=== PATIENT | female | born 1955 | race Two or more races ===

== ENCOUNTER → 2018-01-08 | Outpatient (CLI) | DX: R10.9 Unspecified abdominal pain (principal) ==

== ENCOUNTER 2018-01-27 01:50 | Emergency (ER) | payer OTHER ==
[~2018-01-27 01:50] MED LIST: ASPI81TA82 PO; ATOR10TA PO; DICL50TA3 PO; FISH100020 PO; GLUCTAB PO; HYDR-2768 PO; SM F10002 PO; VITA100O PO; VITATAB11
[2018-01-27 01:53] VITALS: BP 164/87; PULSE 79; RESP 18; TEMP 97.2; O2SAT 97
--- NOTE | 2018-01-27 02:36 | PD ---
HPI Chief Complaint: Abdominal Pain Time Seen by Provider: 02:07 Travel History International Travel<30 days: No Contact w/Intl Traveler<30days: No Traveled to known affect area: No History of Present Illness HPI The patient is a 62 year old female who presents to the [facility] emergency department with a history of abdominal pain that she reports has been present since November. The patient reports that she has seen her primary care physician, Dr. Scott regarding this as well as her civil transportation engineer, Dr. Aguayo for evaluation of this. She reports that she has not been able to follow-up to have laboratory studies done, however she has had some imaging done. The patient had a CT scan of the abdomen and pelvis done at the beginning of December that showed some constipation and thickening of the stomach area. The patient reports that she last had endoscopy and colonoscopy done approximately 1 year ago. The patient reports that she has been experiencing chronic constipation that is gradually gotten worse in the last month. She reports that 2 weeks ago she stopped taking pain medication because of the constipation. The patient reports that this has not helped. She last moved her bowels on Friday, 2 days ago. She reports that it was a small and hard stool. She reports that she has been taking multiple stool softeners without relief. She reports having nausea, however no vomiting. She denies having any fevers. He reports that prior to arrival she felt an explosive pain in the right side of the abdomen and became increasingly distended, though she decided to come the emergency department for evaluation and treatment. She denies having any known recent fevers, cough or congestion, neck pain, chest pain, shortness of breath, or neurologic symptoms. The patient also has a copy of an ultrasound of the right upper quadrant that was done recently in mid December that showed no abnormality of her gallbladder. The patient also had a pelvis ultrasound that showed no acute abnormality. [facility] Past Medical History Narrative Medical The patient's past medical history is significant for diabetes mellitus, constipation, chronic back pain, hypertension Past Surgical History Narrative Surgical The patient's past surgical history is reportedly none. Social History Alcohol Use: No Tobacco Use: No Substance Use: No Allergies-Medications (Allergen,Severity, Reaction): Coded Allergies: No Known Allergies (Unverified Allergy, Unknown, 01/27/18) Reported Meds & Prescriptions Reported Meds & Active Scripts Active Miralax Powder (Polyethylene Glycol 3350 Powder) 17 Gm Powd 17 Gm PO DAILY Mix and dissolve one measuring cap-ful (17 grams) in water or juice. Reported Vitamin B Complex (B-Complex Vitamins) Tab Vitamin E 100 Unit Oil 400 Units PO DAILY Fish Oil ([place]-3 Fatty Acids) 1,000 Mg Cap 1,000 Mg PO BID Sm Flax Seed Oil (Flaxseed) 1,000 Mg Cap 1,200 Mg PO Aspir-81 (Aspirin) 81 Mg Tab 81 Mg PO DAILY Atorvastatin 10 mg (Atorvastatin Calcium) 10 Mg Tab 10 Mg PO DAILY Diclofenac Sodium Dr (Diclofenac Sodium) 50 Mg Tab 100 Mg PO DAILY Hctz (Hydrochlorothiazide) 25 Mg Tab 25 Mg PO DAILY Glucophage XR 24 HR (Metformin HCl) 500 Mg Tab 1,000 Mg PO BIDPC Review of Systems Except as stated in HPI: all other systems reviewed are Neg General / Constitutional: No: Fever Eyes: No: Visual changes HENT: No: Headaches Cardiovascular: No: Chest Pain or Discomfort Respiratory: No: Shortness of Breath Gastrointestinal: Positive: Nausea, Abdominal Pain, Constipation, Changes in Bowel Habits, Indigestion, No: Vomiting, Diarrhea, Hematochezia, Loss of Appetite Genitourinary: No: Dysuria Musculoskeletal: No: Pain Skin: No Rash Neurologic: No: Weakness Psychiatric: No: Depression Endocrine: No: Polydipsia Hematologic/Lymphatic: No: Easy Bruising Physical Exam Narrative General: The patient is a well-developed well-nourished female in no acute distress. Head and Neck exam: Head is normocephalic atraumatic. Eyes: EOMI, pupils are equal round and reactive to light. Nose: Midline septum with pink mucous membranes Mouth: Dentition unremarkable. Moist mucus membranes. Posterior oropharynx is not erythematous. No tonsillar hypertrophy. Uvula midline. Airway patent. Neck: No palpable lymphadenopathy. No nuchal rigidity. No thyromegaly. Cardiovascular: Regular rate and rhythm without murmurs, gallops, or rubs. No pulse deficit to the extremities on simultaneous auscultation and palpation of her radial artery. Lungs: Clear to auscultation bilaterally. No wheezes, rhonchi, or rales. Abdomen: Soft, with reported tenderness on palpation of the right upper quadrant of the abdomen and midepigastric area, no other tenderness on palpation of the other quadrants of the abdomen. The patient is mildly distended on exam. The patient has normal bowel sounds audible. No guarding, rebound, or rigidity. Negative Centeno sign. No tenderness on palpation of McBurney's point. Extremities: No clubbing, cyanosis, or edema. 2+ pulses in all 4 extremities. Back: No costovertebral angle tenderness to palpation. Neurologic Exam: Grossly nonfocal. Skin Exam: No rash noted. Intact skin that is warm and dry. Data Data Last Documented VS Vital Signs Date Time Temp Pulse Resp B/P (MAP) Pulse Ox O2 Delivery O2 Flow Rate FiO2 01/27/18 01:53 97.2 79 18 164/87 (112) 97 Orders Orders Electrocardiogram (01/27/18 02:27) Complete Blood Count With Diff (01/27/18 02:27) Comprehensive Metabolic Panel (01/27/18 02:27) Creatine Kinase (Cpk) (01/27/18 02:27) Ckmb (Isoenzyme) Profile (01/27/18 02:27) Troponin I (01/27/18 02:27) Prothrombin Time / Inr (Pt) (01/27/18 02:27) Act Partial Throm Time (Ptt) (01/27/18 02:27) Lipase (01/27/18 02:27) Urinalysis - C+S If Indicated (01/27/18 02:27) Magnesium (Mg) (01/27/18 02:27) Chest, Single Ap (01/27/18 02:27) Ct Abd/Pel W Iv Contrast(Rout) (01/27/18 02:27) Iv Access Insert/Monitor (01/27/18 02:27) Ecg Monitoring (01/27/18 02:27) Oximetry (01/27/18 02:27) CKMB (01/27/18 02:45) CKMB% (01/27/18 02:45) Iohexol 350 Inj (Omnipaque 350 Inj) (01/27/18 04:17) Sodium Chlor 0.9% 1000 Ml Inj (Ns 1000 M (01/27/18 04:30) Ketorolac Inj (Toradol Inj) (01/27/18 04:30) Fleets Enema PRN (01/27/18 05:01) Labs Laboratory Tests Test 6/5/18 02:45 White Blood Count 7.7 TH/MM3 Red Blood Count 3.85 MIL/MM3 Hemoglobin 12.5 GM/DL Hematocrit 36.1 % Mean Corpuscular Volume 93.7 FL Mean Corpuscular Hemoglobin 32.6 PG Mean Corpuscular Hemoglobin Concent 34.8 % Red Cell Distribution Width 14.0 % Platelet Count 271 TH/MM3 Mean Platelet Volume 7.6 FL Neutrophils (%) (Auto) 50.4 % Lymphocytes (%) (Auto) 41.7 % Monocytes (%) (Auto) 6.3 % Eosinophils (%) (Auto) 0.8 % Basophils (%) (Auto) 0.8 % Neutrophils # (Auto) 3.9 TH/MM3 Lymphocytes # (Auto) 3.2 TH/MM3 Monocytes # (Auto) 0.5 TH/MM3 Eosinophils # (Auto) 0.1 TH/MM3 Basophils # (Auto) 0.1 TH/MM3 CBC Comment DIFF FINAL Differential Comment Prothrombin Time 10.0 SEC Prothromb Time International Ratio 1.0 RATIO Activated Partial Thromboplast Time 27.1 SEC Blood Urea Nitrogen 17 MG/DL Creatinine 1.01 MG/DL Random Glucose 97 MG/DL Total Protein 7.2 GM/DL Albumin 3.9 GM/DL Calcium Level 8.8 MG/DL Magnesium Level 2.3 MG/DL Alkaline Phosphatase 71 U/L Aspartate Amino Transf (AST/SGOT) 19 U/L Alanine Aminotransferase (ALT/SGPT) 45 U/L Total Bilirubin 0.3 MG/DL Sodium Level 136 MEQ/L Potassium Level 3.6 MEQ/L Chloride Level 100 MEQ/L Carbon Dioxide Level 25.2 MEQ/L Anion Gap 11 MEQ/L Estimat Glomerular Filtration Rate 56 ML/MIN Total Creatine Kinase 215 U/L Creatine Kinase MB 3.6 NG/ML Creatine Kinase MB % 1.7 % Troponin I LESS THAN 0.02 NG/ML Lipase 91 U/L MDM Medical Decision Making Medical Screen Exam Complete: Yes Emergency Medical Condition: Yes Medical Record Reviewed: Yes Differential Diagnosis Perforated bowel, versus peptic ulcer disease, versus pancreatitis, versus diverticulitis, versus fecal impaction, versus colitis Narrative Course During the course of the patient's emergency department visit, the patient's history, examination, and differential diagnosis were reviewed with the patient. The patient was placed on a court monitor with oximetry and frequent blood pressure monitoring. The patient had IV access obtained and blood work sent for analysis. The patient had an EKG done on arrival. The patient's EKG shows a sinus rhythm heart rate of 62, QRS duration is 110 ms, QTC 450 ms. The patient has a right bundle branch block noted. Left anterior fascicular block noted. No acute ST segment elevation. T waves are inverted in V1, V2, aVL. The patient was initially provided ns 1 L IVF bolus, Toradol 15 mg IV 1 for pain The patient's laboratory studies were reviewed and remarkable for a white count of 7.7, hemoglobin 12.5, platelets 271 with a normal differential, CMP is remarkable for creatinine 1.01, CPK 215 with an MB percent of 1.7, troponin I less than 0.02, lipase 91, PT PTT within normal limit Radiology studies were reviewed and remarkable for a chest x-ray that shows no acute intrathoracic abnormality. CT scan of the abdomen and pelvis showed evidence of constipation with stool that is moderate in amount throughout the entire colon, no other acute abnormality. Due to the chronic nature of the patient's symptoms, the patient is encouraged to follow back up with her civil transportation engineer as previously planned. Given the patient's persistent constipation, the patient will be treated with MiraLAX, and also given a fleets enema to take home and administer in the comfort her for home where she can use her own toilet to help with constipation. The patient is resting comfortably and feels better, is alert and in no distress. The patient's results and examination findings were discussed with the patient. The repeat examination is unremarkable and benign. The history, exam, diagnostic testing, and current condition do not suggest any significant pathology to warrant further testing, continued ED treatment, admission, or surgical evaluation at this point. The vital signs have been stable. The patient does not have uncontrollable pain, intractable vomiting, or other significant symptoms. The patient's condition is stable and appropriate for discharge. The patient will pursue further outpatient evaluation with a primary care physician or other designated or consulting physician as indicated in the discharge instructions. The patient is instructed to report back to the emergency department immediately for reexamination in the mean time if she develops any new or worsening signs or symptoms. The patient expressed understanding and was agreeable with this plan. Diagnosis Primary Impression: Abdominal pain Qualified Codes: R10.11 - Right upper quadrant pain Additional Impression: Constipation Qualified Codes: K59.00 - Constipation, unspecified Referrals: [facility] Primary Care Physician Patient Instructions: Abdominal Pain (ED), Constipation (ED), General Instructions Scripts Polyethylene Glycol 3350 Powder (Miralax Powder) 17 Gm Powd 17 GM PO DAILY for Constipation, #1 CAN 0 Refills Mix and dissolve one measuring cap-ful (17 grams) in water or juice. Prov: Kenzie Diehl MD 01/27/18 Disposition: 01 DISCHARGE HOME Condition: Stable Kenzie Diehl MD Jan 27, 2018 02:36
[2018-01-27 02:51] LABS: AUTOMATED NEUTROPHIL # 3.9 TH/MM3 (1.8-7.7); BASOPHIL # 0.1 TH/MM3 (0-0.2); BASOPHIL % 0.8 % (0.0-2.0); EOSINOPHIL # 0.1 TH/MM3 (0-0.4); EOSINOPHIL % 0.8 % (0.0-4.0); HEMATOCRIT 36.1 % (35.0-46.0); HEMOGLOBIN 12.5 GM/DL (11.6-15.3); LYMPH % 41.7 % (9.0-44.0); LYMPHOCYTE # 3.2 TH/MM3 (1.0-4.8); MEAN CELL VOLUME 93.7 FL (80.0-100.0); MEAN CORPUSCULAR HEMOGLOBIN 32.6 PG (27.0-34.0); MEAN CORPUSCULAR HGB CONC 34.8 % (32.0-36.0); MEAN PLATELET VOLUME 7.6 FL (7.0-11.0); MONO % 6.3 % (0.0-8.0); MONOCYTE # 0.5 TH/MM3 (0-0.9); NEUT % 50.4 % (16.0-70.0); PLATELET COUNT 271 TH/MM3 (150-450); RED BLOOD COUNT 3.85 MIL/MM3 (4.00-5.30); WHITE BLOOD COUNT 7.7 TH/MM3 (4.0-11.0)
[2018-01-27 03:06] LABS: ALBUMIN 3.9 GM/DL (3.4-5.0); ALT (GPT) 45 U/L (10-53); AST (GOT) 19 U/L (15-37); BICARBONATE 25.2 MEQ/L (21.0-32.0); BLOOD UREA NITROGEN 17 MG/DL (7-18); CALCIUM 8.8 MG/DL (8.5-10.1); CHLORIDE 100 MEQ/L (98-107); CREATININE 1.01 MG/DL (0.50-1.00); GLOMERULAR FILTRATION RATE 56 ML/MIN (>89); GLUCOSE,RANDOM 97 MG/DL (74-106); MAGNESIUM 2.3 MG/DL (1.5-2.5); SODIUM (NA) 136 MEQ/L (136-145)
[2018-01-27 03:08] LABS: ALKALINE PHOSPHATASE 71 U/L (45-117); TOTAL BILIRUBIN ADULT 0.3 MG/DL (0.2-1.0); TOTAL PROTEIN 7.2 GM/DL (6.4-8.2); TROPONIN I LESS THAN 0.02 NG/ML (0.02-0.05)
--- NOTE | 2018-01-27 03:14 | RADRPT ---
EXAM DATE: 01/27/2018 3:08 AM EDT AGE/SEX: 62 years / Female INDICATIONS: Chest pain to inferior chest. CLINICAL DATA: This is the patient's initial encounter. Patient reports that signs and symptoms have been present for 1 day and indicates a pain score of 7/10. MEDICAL/SURGICAL HISTORY: None. None. COMPARISON: No prior [place] exams available for comparison. FINDINGS: A single AP view of the chest demonstrates the lungs to be symmetrically aerated without evidence of mass, infiltrate or effusion. The cardiomediastinal contours are unremarkable. Osseous structures a re intact. CONCLUSION: No acute intrathoracic disease. Electronically signed by: Wellington Jernigan MD 01/27/2018 3:13 AM EDT
[2018-01-27] MEDS ORDERED: IOHEXOL 350 MG/ML 10 ML VIAL (for RAD DIAG) IVCONTRAST ONE (04:17)
[2018-01-27] MEDS ORDERED: SODIUM CHLOR 0.9% 1000 ML INJ 1,000 ML IV ONE (04:30)
[2018-01-27] MEDS ORDERED: KETOROLAC TROMETHAMINE 30 MG/ML (IVP) VIAL IV PUSH ONE (04:30)
--- NOTE | 2018-01-27 04:42 | RADRPT ---
EXAM DATE: 01/27/2018 4:28 AM EDT AGE/SEX: 62 years / Female INDICATIONS: Abdomen pain for two months. CLINICAL DATA: This is the patient's initial encounter. Patient reports that signs and symptoms have been present for 2 months and indicates a pain score of 10/10. MEDICAL/SURGICAL HISTORY: Hypertension. None. ORAL CONTRAST: No oral contrast ingested. RADIATION DOSE: 7.04 CTDI (mGy) COMPARISON: No prior [place] exams available for comparison. TECHNIQUE: Multiple contiguous axial images were obtained through the abdomen and pelvis following b olus infusion of 100 ml Omnipaque 350 (iohexol) nonionic water-soluble contrast as a single exam do se. No oral contrast ingested. Using automated exposure control and adjustment of the mA and/or kV a ccording to patient size, the radiation dose was kept as low as reasonably achievable to obtain optim al diagnostic quality images. FINDINGS: Lower Lungs: The visualized lower lungs are clear. Liver: The liver has a homogeneous density without space-occupying lesion. There is no dilation of th e biliary tree. The gallbladder is unremarkable. Spleen: Homogeneous density without enlargement. Pancreas: Unremarkable without mass or calcification. Kidneys: Normal in size and shape. No evidence of mass or hydronephrosis. Adrenal Glands: Unremarkable. Aorta: The aorta and proximal iliac vessels are grossly unremarkable without aneurysmal dilation. Bowel/Mesentery: The bowel loops are grossly unremarkable. The cecum and sigmoid colon have a normal configuration. The appendix is unremarkable. No inflammatory changes. There is a moderate amount of stool throughout the entire colon. Abdominal Wall: Intact. Retroperitoneum: No evidence of adenopathy in the retrocrural, para-aortic, or deep pelvic regions. Bladder: Contours are smooth. Reproductive Organs: No abnormal masses or calcifications seen. Inguinal: The inguinal region is unremarkable without evidence of adenopathy. Bony Structures: Mild degenerative changes. CONCLUSION: 1. Unremarkable examination. Electronically signed by: Wellington Jernigan MD 01/27/2018 4:41 AM EDT
[2018-01-27] MEDS ORDERED: MIRA3350 PO (05:00)
[2018-01-27] MEDS ORDERED: SOD PHOSPHATE/SOD BIPHOSPHATE (ADULT) ENEMA 133ML RECTAL ONE (06:30)
--- NOTE | 2018-01-27 15:22 | EKG ---
Date Performed: 01/27/2018 Time Performed: 04:07:13 PTAGE: 62 years EKG: Sinus rhythm PATTERN CONSISTENT WITH PULMONARY DISEASE RIGHT BUNDLE BRANCH BLOCK LEFT ANTERIOR FASCICULAR BLOCK A BNORMAL ECG NO PREVIOUS TRACING DOCTOR: Taty Dinh Interpretating Date/Time 01/27/2018 15:21:07
== END 2018-01-27 06:46 | disposition home or self-care (01) ==
LOC: NEPC 01:50
DX: K59.09 Other constipation (principal); R94.31 Abnormal electrocardiogram [ECG] [EKG]; E11.9 Type 2 diabetes mellitus without complications; I10 Essential (primary) hypertension; G89.29 Other chronic pain; M54.9 Dorsalgia, unspecified
CPT/HCPCS: 71045; 74177; 80053; 82550; 82552; 83690; 83735; 84484; 85025; 85610; 85730; 93005; 96374; 99285; J1885; J7030; Q9967